=== PATIENT | female | born 1955 | race Caucasian/White ===

== ENCOUNTER → 2020-06-06 | Outpatient (CLI) | payer OTHER ==
[~2020-06-06] MED LIST: AUGMENTIN 875-1 EACH PO; MECLIZINE HCL25 MG PO; ZOFRAN4 MG PO
== END ==
LOC: EMI 08:48
DX: R41.89 Other symptoms and signs involving cognitive functions and awareness (principal)
CPT/HCPCS: 70551

== ENCOUNTER 2020-08-19 20:21 | Emergency (ER) | payer OTHER ==
[2020-08-19 21:15] LABS: HEMOGLOBIN 14.1 gm/dl (12.3-15.3); RED BLOOD COUNT 4.85 M/UL (4.00-5.10); WHITE BLOOD COUNT 17.3 K/UL (4.5-11.0)
[2020-08-19 21:37] LABS: BUN/CREATININE RATIO 28 (0-10)
[2020-08-20] MEDS ORDERED: AUGMENTIN 875-1 EACH PO (02:45)
[2020-08-20] MEDS ORDERED: MECLIZINE HCL25 MG PO (02:45)
[2020-08-20] MEDS ORDERED: ZOFRAN4 MG PO (02:45)
== END 2020-08-20 04:00 | disposition home or self-care (01) ==
LOC: ER1 20:21
PROVIDERS: Physician Assistant Medical
DX: K57.32 Diverticulitis of large intestine without perforation or abscess without bleeding (principal); H81.10 Benign paroxysmal vertigo, unspecified ear; I10 Essential (primary) hypertension; Z90.49 Acquired absence of other specified parts of digestive tract; Z90.710 Acquired absence of both cervix and uterus
CPT/HCPCS: 70450; 71045; 80053; 81001; 82550; 82553; 83874; 84484; 85025; 93005; 96374; 96375; 99284; J2405; Q9967

== ENCOUNTER 2021-07-14 20:17 | Emergency (ER) | payer OTHER | END 2021-07-14 22:25 | disposition home or self-care (01) | LOC: ER1 20:17 | DX: S80.02XA Contusion of left knee, initial encounter (principal); S00.33XA Contusion of nose, initial encounter; I10 Essential (primary) hypertension; J45.909 Unspecified asthma, uncomplicated; Z90.710 Acquired absence of both cervix and uterus; Z88.8 Allergy status to other drugs, medicaments and biological substances; W01.0XXA Fall on same level from slipping, tripping and stumbling without subsequent striking against object, initial encounter; Y92.410 Unspecified street and highway as the place of occurrence of the external cause | CPT/HCPCS: 70450; 72125; 73564; 73590; 99284 ==